=== PATIENT | male | born 1990 ===

== ENCOUNTER 2017-01-02 09:13 | Emergency (ER) | payer SELFPAY ==
[2017-01-02 09:50] VITALS: BP 127/76
--- NOTE | 2017-01-02 10:08 | UC ---
Back Pain HPI - HPI Summary HPI Summary: 4-5 MONTHS OF DIFFUSE BACK PAIN. "FEELS NUMB INSIDE". WORSE WITH MOVEMENT. IBUPROFEN USED TO HELP BUT NOT ANYMORE. [facility] AND WAS DIAGNOSED WITH MUSCLE STRAIN BUT PAIN HAS PERSISTED AND HE FEELS IT IS GETTING WORSE. NO SADDLE ANESTHESIA OR NUMBNESS/TINGLING IN LEGS. NO ACUTE INJURY HE CAN RECALL. [employer]. SPEAKS NO [place]. - History of Current Complaint Chief Complaint: UCBackPain Stated Complaint: BACK PAIN Time Seen by Provider: 01/02/17 09:48 Hx Obtained From: Patient Onset/Duration: Gradual Onset, Lasting Weeks, Still Present Severity Initially: Moderate Severity Currently: Moderate Pain Intensity: 8 Pain Scale Used: 0-10 Numeric Back Pain: Is Diffuse Character: Unable to Describe Aggravating: Movement, Bending Alleviating: Rest Associated Signs And Symptoms: Positive: Negative - Allergies/Home Medications Allergies/Adverse Reactions: Allergies Allergy/AdvReac Type Severity Reaction Status Date / Time No Known Allergies Allergy Verified 01/02/17 09:26 PMH/Surg Hx/FS Hx/Imm Hx Previously Healthy: Yes - Surgical History Surgical History: None - Family History Known Family History: Negative: Hypertension - Social History Alcohol Use: Rare Substance Use Type: None Smoking Status (MU): Never Smoked Tobacco Review of Systems Constitutional: Negative ENT: Negative Respiratory: Negative Cardiovascular: Negative Musculoskeletal: Arthralgia, Myalgia All Other Systems Reviewed And Are Negative: Yes Physical Exam Triage Information Reviewed: Yes Appearance: Well-Appearing, No Pain Distress, Well-Nourished Vital Signs: Initial Vital Signs Temp 98.7 F 01/02/17 09:30 Pulse 64 01/02/17 09:30 Resp 18 01/02/17 09:30 BP 127/76 01/02/17 09:30 Pulse Ox 100 01/02/17 09:30 Vital Signs Reviewed: Yes Eyes: Positive: Conjunctiva Clear ENT: Positive: Hearing grossly normal Neck: Positive: Supple Respiratory: Positive: No respiratory distress, No accessory muscle use Cardiovascular: Positive: Pulses Normal Abdomen Description: Positive: Soft Musculoskeletal: Positive: ROM Intact, No Edema, Other: - REPORTS PAIN WITH MVMT. MILDLY TENDER DIFFUSELY OVER PARASPINAL MUSCLES. Neurological: Positive: Alert Psychological: Positive: Age Appropriate Behavior Skin: Negative: rashes Diagnostics - Radiology CERVICAL SPINE XRAYS Xray Interpretation: Positive (See Comments) - STRAIGHTENING OF NORMAL LORDOSIS Radiology Interpretation Completed By: Radiologist THORACIC SPINE XRAYS Xray Interpretation: Positive (See Comments) - MILD SCOLIOSIS Radiology Interpretation Completed By: Radiologist LUMBARSACRAL SPINE XRAYS Xray Interpretation: Positive (See Comments) - MILD SCOLIOSIS Radiology Interpretation Completed By: Radiologist Back Pain Course/Dx - Differential Dx/Diagnosis Provider Diagnoses: ACUTE ON CHRONIC DIFFUSE BACK PAIN Discharge - Discharge Plan Condition: Stable Disposition: HOME Prescriptions: Cyclobenzaprine TAB* [Flexeril TAB*] 10 mg PO TID PRN #30 tab PRN Reason: Pain Naproxen [Naproxen EC] 500 mg PO BID PRN #30 tab PRN Reason: Pain Patient Education Materials: Chronic Back Pain (ED) Print Language: PALAUAN Additional Instructions: XRAYS SHOW SOME MILD SCOLIOSIS AND STRAIGHTENING OF THE NORMAL CERVICAL LORDOSIS. NO ACUTE CHANGES. FOLLOW-UP WITH THE [facility] IN [place] FOR FURTHER EVALUATION. [facility] [address] [place] [phone]
--- NOTE | 2017-01-02 10:41 | RAD ---
HISTORY: Diffuse pain COMPARISONS: None VIEWS: 2, Frontal and lateral views of the thoracic spine. FINDINGS: ALIGNMENT: There is a mild levoscoliotic curvature of the spine VERTEBRAL BODIES: The vertebral body heights are normal. The interpedicular distances are normal. JOINTS: Unremarkable. INTERVERTEBRAL DISCS: The intervertebral disc heights are normal. SOFT TISSUE: Unremarkable OTHER: The visualized lungs are clear. IMPRESSION: MILD SCOLIOSIS
--- NOTE | 2017-01-02 10:41 | RAD ---
HISTORY: Diffuse pain COMPARISONS: None VIEWS: 4 , Frontal, lateral, and bilateral oblique views of the lumbar spine. FINDINGS: ALIGNMENT: There is mild scoliotic curvature of the spine VERTEBRAL BODIES: The vertebral body heights are normal. The interpedicular distances are normal. JOINTS: The facet joints are normal. INTERVERTEBRAL DISCS: The intervertebral disc heights are normal. SOFT TISSUE: Unremarkable. OTHER: The pelvis is unremarkable. The lung bases are clear. IMPRESSION: MILD SCOLIOSIS
--- NOTE | 2017-01-02 10:48 | RAD ---
Indication: Neck pain. 3 views of the cervical spine demonstrates straightening of the normal lordosis. Spinal canal appears to be intact. No prevertebral soft tissue swelling is noted. IMPRESSION: No fracture is identified. Straightening of the normal lordosis.
== END 2017-01-02 11:23 | disposition home or self-care (01) ==
LOC: UCCORT 09:13
DX: M54.9 Dorsalgia, unspecified (principal); M41.9 Scoliosis, unspecified
CPT/HCPCS: 72040; 72070; 72110; 99202; G0463